=== PATIENT | male | born 1945 | race Caucasian/White ===

== ENCOUNTER → 2018-07-15 10:26 | Outpatient (CLI) | payer OTHER, SELFPAY ==
--- NOTE | 2018-07-15 10:31 | DI.RAD.S_ITS ---
PROCEDURE: XR WRIST LT MIN 3V INDICATIONS: FALL TECHNIQUE: 3 views of the wrist were acquired. COMPARISON: [facility], , WRIST MINIMUM 3 VIEWS LEFT, 08/20/2015, 13:35. FINDINGS: Bones: There is a triquetral fracture seen on the lateral view. No other fractures or dislocations. Underlying chronic degenerative change, involving the first carpometacarpal joint and radiocarpal joint. Soft tissues: No suspicious soft tissue calcifications. Soft tissue swelling. IMPRESSION: Triquetral fracture. Dictated by: Xiang Louis M.D. on 07/15/2018 at 11:08 Approved by: Xiang Louis M.D. on 07/15/2018 at 11:14
== END ==
PROVIDERS: PCP Student in an Organized Health Care Education/Training Program; Visit Provider Physician Assistant
DX: M25.532 Pain in left wrist (principal); S62.112A Displaced fracture of triquetrum [cuneiform] bone, left wrist, initial encounter for closed fracture
CPT/HCPCS: 73110

== ENCOUNTER → 2018-11-30 12:57 | Outpatient (CLI) | payer OTHER, SELFPAY ==
[2018-11-30 13:37] LABS: Lactate (Lactic Acid) 1.3 mmol/L (0.7-2.1)
[2018-11-30 14:01] LABS: Hematocrit 45.3 % (41-53); Hemoglobin 15.8 g/dL (13.5-17.5); Mean Corpuscular HGB Conc 34.9 % (30-36); Mean Corpuscular Hemoglobin 32.5 PG (26-34); Mean Corpuscular Volume 93.3 fL (80-100); Platelet Count 261 X10^3/uL (150-400); Red Blood Cell Count 4.85 X10^6/uL (4.5-5.9); Red Cell Distribution Width 14.4 % (11.6-14.8); White Blood Cell Count 10.5 X10^3/uL (4.5-11.0)
[2018-11-30 14:22] LABS: Alanine Aminotransferase 25 IU/L (21-72); Albumin 4.4 g/dL (3.5-5.0); Albumin Globulin Ratio 1.3 (1.0-2.8); Alkaline Phosphatase 96 U/L (38-126); Aspartate Aminotransferase 33 IU/L (17-59); BUN Creatinine Ratio 23.3 (6-22); Bilirubin Total 0.6 mg/dL (0.2-1.3); Blood Urea Nitrogen 21 mg/dL (9-20); Calcium 9.5 mg/dL (8.4-10.2); Carbon Dioxide 30 mmol/L (22-32); Chloride 95 mmol/L (98-107); Estimated Glomerular Filt Rate > 60.0 mL/min (>60); Globulin 3.4 g/dL (1.7-4.1); Glucose 104 mg/dL (80-110); HEMOLYSIS < 15 (0-50); Potassium 3.7 mmol/L (3.4-5.1); Sodium 137 mmol/L (137-145); Total Protein 7.8 g/dL (6.3-8.2)
[2018-11-30 14:24] LABS: Neutrophils Absolute Manual 8820 /uL (3000-5900); Total Cells Counted 100
[2018-11-30 14:25] LABS: RBC Morphology Normal Morphology
== END ==
PROVIDERS: PCP Student in an Organized Health Care Education/Training Program; Visit Provider Nurse Practitioner
DX: T67.0XXA Heatstroke and sunstroke, initial encounter (principal)
CPT/HCPCS: 36415; 80053; 83605; 85025

== ENCOUNTER → 2018-12-13 07:59 | Outpatient (CLI) | payer OTHER, SELFPAY ==
[2018-12-13 08:09] LABS: Bacteria Urine None Seen
--- NOTE | 2018-12-13 08:20 | DI.RAD.S_ITS ---
PROCEDURE: XR CHEST 2V INDICATIONS: productive cough, fatigue, low energy TECHNIQUE: 2 views of the chest were acquired. COMPARISON: [facility], , CHEST 2 VIEW, 04/22/2016, 9:33. FINDINGS: Surgical changes and devices: None. Lungs and pleura: Lungs are clear. No pleural effusions or pneumothorax. Mediastinum: Mediastinal contours are normal. Heart size is normal. Bones and chest wall: No suspicious bony abnormalities. Soft tissues appear unremarkable. IMPRESSION: No acute cardiopulmonary pathology. Dictated by: Nick Ayala M.D. on 12/13/2018 at 8:16 Approved by: Nick Ayala M.D. on 12/13/2018 at 8:18
[2018-12-13 08:23] LABS: Appearance Urine UA SL CLOUDY; Bilirubin Urine UA NEGATIVE (NEGATIVE); Color Urine UA YELLOW; Glucose Urine UA NEGATIVE (Negative); Ketones Urine UA TRACE (NEGATIVE); Leukocyte Esterase Urine UA NEGATIVE (NEGATIVE); Nitrite Urine UA NEGATIVE (Negative); Occult Blood Urine UA NEGATIVE (Negative); Protein Urine UA NEGATIVE (Negative); Urobilinogen Urine UA 0.2 E.U./dL (0.2); pH Urine UA 5.5 (4.5-8.0)
[2018-12-13 08:25] LABS: Hematocrit 42.4 % (41-53); Hemoglobin 14.7 g/dL (13.5-17.5); Mean Corpuscular HGB Conc 34.6 % (30-36); Mean Corpuscular Hemoglobin 32.3 PG (26-34); Mean Corpuscular Volume 93.4 fL (80-100); Platelet Count 240 X10^3/uL (150-400); Red Blood Cell Count 4.55 X10^6/uL (4.5-5.9); Red Cell Distribution Width 13.6 % (11.6-14.8); White Blood Cell Count 8.8 X10^3/uL (4.5-11.0)
[2018-12-13 08:35] LABS: Culture Indicated Urine Cult Not Indicated; RBC Urine 0-1/HPF (0-5/HPF); WBC Urine 0-1/HPF (0-5/HPF)
[2018-12-13 08:37] LABS: Neutrophils Absolute Manual 7040 /uL (3000-5900); RBC Morphology Normal Morphology; Total Cells Counted 100
[2018-12-13 09:22] LABS: TSH w/ Reflex to FT4 5.97 uIU/mL (0.47-4.68)
[2018-12-13 09:50] LABS: Free T4, Direct Thyroxine 1.42 ng/dL (0.78-2.19)
[2018-12-13 14:09] LABS: C-Reactive Protein Quant 6.5 mg/dL (<1.0)
[2018-12-13 14:12] LABS: Erythrocyte Sedimentation Rate 45 MM/HR (0-15)
== END ==
PROVIDERS: Family Provider Student in an Organized Health Care Education/Training Program; PCP Student in an Organized Health Care Education/Training Program; Visit Provider Nurse Practitioner
DX: R50.9 Fever, unspecified (principal); R53.83 Other fatigue; R63.4 Abnormal weight loss; R05 Cough; I07.1 Rheumatic tricuspid insufficiency; I35.0 Nonrheumatic aortic (valve) stenosis
CPT/HCPCS: 36415; 71046; 81001; 84439; 84443; 85025; 85651; 86140

== ENCOUNTER → 2018-12-18 07:16 | Outpatient (CLI) | payer OTHER, SELFPAY ==
--- NOTE | 2018-12-18 07:18 | DI.ECHO.S_ITS ---
[facility]---------+ [facility] +---------+ : : [address] : [place] : : : : [id number] : : : : Phone: [phone]---------+ Echocardiogram Report + + :Name: NESS CORTEZ Study Date: 12/18/2018 Height: 65 in : :[facility] Weight: 130 lb : : Gender: Male BSA: 1.6 m2 : :: 1945 Age: 73 yrs BP: 110/66 mmHg: :Reason For Study: Endocarditis : : Performed By: Stefani Ellis : :Referring: RAMÍREZ HU : + + Interpretation Summary -A small, mobile, ovoid echodensity is visualized on the ventricular aspect of the aortic valve. It approximately measures 0.4x0.3 cm. Visualization is limited due to shadowing from aortic valve calcification. The differentials include endocarditis vs. papillary fibroelastoma or other cardiac tumors. This was not present on the echocardiogram from 2013. The images from 2014 are suboptimal for direct comparison but not obviously seen then either. -Severe aortic valve stenosis with similar valve area compared to 2016 but progression in peak velocity. -Probably bicuspid aortic valve with fusion of the left and noncoronary cusps. -Normal LVEF and grade 1 diastolic dysfunction. -No other vegetation noted. -Overall this echo shows severe aortic valve stenosis and possible vegetation on the valve. -Recommend a AMBAR for further evaluation of the echodensity on the aortic valve and better visualization of other valves. -The ordering provider's office was notified of the critical results. Procedure: A two-dimensional transthoracic echocardiogram with color flow and Doppler was performed. The study quality was technically adequate. Comparison is made with the echocardiogram of 08-12-15. The patient was in normal sinus rhythm during the exam. Left Ventricle: The left ventricle is normal in size, wall thickness, and systolic function without any focal wall motion abnormalities. The ejection fraction is estimated to be 60-65%. Diastolic parameters suggest a relaxation abnormality of the left ventricle, consistent with probable normal filling pressures. Right Ventricle: The right ventricle is not well visualized. Atria: The left atrial size is normal. Right atrial size is normal. There is no Doppler evidence for an interatrial shunt. Mitral Valve: The mitral valve is grossly normal. There is no obvious vegetation seen on the mitral valve. There is trace mitral regurgitation. Aortic Valve: Small mobile echogenic structure seen on aortic valve. The calculated aortic valve area is 0.7 cm2. The aortic valve area is 0.9 centimeters squared by planimetry. The peak aortic velocity is 4.4 m/sec. The peak aortic velocity on the previous exam was 3.3 m/sec. The aortic valve mean gradient is 39 mmHg. Severity ratio is 0.20. There is severe aortic stenosis. There is trace aortic regurgitation. Tricuspid Valve: The tricuspid valve is normal in structure and function. There is no obvious tricuspid valve vegetation. There is trace tricuspid regurgitation. The right ventricular systolic pressure is estimated to be at least 28 mmHg based on an estimated right atrial pressure of 3 mm Hg. Pulmonic Valve: The pulmonic valve is not well visualized. Great Vessels: The aortic root is normal size. The ascending aorta could not be visualized. The aortic arch is normal in size. The IVC is of normal diameter and collapses greater than 50% with a sniff. This suggests a low right atrial pressure of 3 mm Hg. Pericardium/ Pleura There is no pericardial effusion. There is no pleural effusion. MMode/2D Measurements & Calculations LVIDd: 4.7 cm LVOT diam: 2.1 cm LVIDs: 3.3 cm Ao root diam: 3.6 cm FS: 30.0 % Aortic Jxn: 2.8 cm IVSd: 1.0 cm Ao Arch Diam (Prox Trans): 2.7 cm LVPWd: 1.0 cm LV richardson. diameter/BSA (cm/m^2): 2.8 LV sys. diameter/BSA (cm/m^2): 2.0 LA dimension: 3.1 cm RA long axis: 4.3 cm LA A2 area: 17.6 cm2 RA area: 15.9 cm2 LA A4 area: 14.5 cm2 RA vol: 49.7 ml LA length (vol): 4.6 cm RA : 30.2 ml/m2 LA vol: 46.7 ml RVDd major: 5.0 cm LA vol index: 28.3 ml/m2 RVD1 (basal): 3.1 cm RVD2 (mid): 2.7 cm RAFY (plan): 0.86 cm2 Doppler Measurements & Calculations Ao V2 max: 437.0 cm/sec LVOT Max Shyam: 86.5 cm/sec Ao V2 mean: 277.0 cm/sec LV V1 max P.0 mmHg Ao max P.4 mmHg LV V1 VTI: 20.1 cm Ao mean P.1 mmHg RAFY(I,D): 0.71 cm2 Ao V2 VTI: 98.3 cm RAFY(V,D): 0.69 cm2 sev ratio: 0.20 RAFY indexed to BSA (cm^2/m^2): 0.43 MV E max shyam: 88.2 cm/sec TR max shyam: 248.6 cm/sec MV A max shyam: 108.5 cm/sec TR max P.7 mmHg MV E/A: 0.81 PA V2 max: 84.4 cm/sec Med Peak E' Shyam: 7.1 cm/sec PA V2 mean: 55.9 cm/sec E/E' med: 12.5 PA mean P.5 mmHg Lat Peak E' Shyam: 8.3 cm/sec PA Accel Time: 0.11 sec E/E' lat: 10.6 E/e' average: 11.6 MV dec time: 0.21 sec MV P1/2t: 63.7 msec MV P1/2t max shyam: 88.6 cm/sec SV(LVOT): 69.5 ml MVA(P1/2t): 3.5 cm2 Electronically signed by: Rahul Diaz M.D. on Reading Physician:12/18/2018 11:22 AM
== END ==
PROVIDERS: Family Provider Student in an Organized Health Care Education/Training Program; PCP Student in an Organized Health Care Education/Training Program; Visit Provider Student in an Organized Health Care Education/Training Program
DX: I35.0 Nonrheumatic aortic (valve) stenosis (principal)
CPT/HCPCS: 93306

== ENCOUNTER → 2019-01-28 14:35 | Outpatient (ROUT) | payer OTHER, SELFPAY ==
[2019-01-28 14:41] LABS: Add Manual Diff / Slide Review NO; Basophils Absolute Auto 0 /uL (0-100); Basophils Percent Auto 0.8 % (0-2); Eosinophils Absolute Auto 100 /uL (0-450); Hematocrit 37.9 % (41-53); Lymphocytes Absolute Auto 600 /uL (1100-4500); Lymphocytes Percent Auto 11.4 % (25-40); Mean Corpuscular HGB Conc 34.3 % (30-36); Mean Corpuscular Hemoglobin 32.2 PG (26-34); Mean Corpuscular Volume 93.8 fL (80-100); Monocytes Absolute Auto 500 /uL (0-900); Monocytes Percent Auto 8.5 % (3-14); Neutrophils Absolute Auto 4300 /uL (1500-7000); Neutrophils Percent Auto 77.3 % (50-75); Platelet Count 199 X10^3/uL (150-400); Red Blood Cell Count 4.04 X10^6/uL (4.5-5.9); Red Cell Distribution Width 14.4 % (11.6-14.8); White Blood Cell Count 5.6 X10^3/uL (4.5-11.0)
[2019-01-28 14:57] LABS: Alanine Aminotransferase 25 IU/L (21-72); Albumin 4.2 g/dL (3.5-5.0); Albumin Globulin Ratio 1.7 (1.0-2.8); Alkaline Phosphatase 85 U/L (38-126); Aspartate Aminotransferase 27 IU/L (17-59); BUN Creatinine Ratio 26.3 (6-22); Bilirubin Total 0.4 mg/dL (0.2-1.3); Blood Urea Nitrogen 21 mg/dL (9-20); Calcium 9.4 mg/dL (8.4-10.2); Carbon Dioxide 28 mmol/L (22-32); Chloride 100 mmol/L (98-107); Estimated Glomerular Filt Rate > 60.0 mL/min (>60); Globulin 2.5 g/dL (1.7-4.1); Glucose 118 mg/dL (80-110); HEMOLYSIS < 15 (0-50); Potassium 4.1 mmol/L (3.4-5.1); Sodium 139 mmol/L (137-145); Total Protein 6.7 g/dL (6.3-8.2)
[2019-01-28 15:01] LABS: C-Reactive Protein Quant < 0.5 mg/dL (<1.0)
== END ==
PROVIDERS: Family Provider Student in an Organized Health Care Education/Training Program; PCP Nurse Practitioner; Visit Provider Internal Medicine Infectious Disease
DX: I38 Endocarditis, valve unspecified (principal)
CPT/HCPCS: 80053; 85025; 86140

== ENCOUNTER → 2019-02-28 07:58 | Outpatient (CLI) | payer OTHER, SELFPAY ==
--- NOTE | 2019-02-28 08:00 | DI.ECHO.S_ITS ---
[facility]---------+ [facility] +---------+ : : [address] : [place] : : : : [id number] : : : : Phone: [phone] +---------+ Echocardiogram Report + + :Name: NESS CORTEZ Study Date: 02/28/2019 Height: 65 in : :[facility] Weight: 130 lb : : Gender: Male BSA: 1.6 m2 : :: 1945 Age: 73 yrs BP: 110/76 mmHg: :Reason For Study: Endocarditis : : Performed By: Stefani Ellis : :Referring: RAMÍREZ HU : + + Interpretation Summary 1) Normal left ventricular thickness, size, wall motion, and systolic function (EF 60-65%). 2) Normal right ventricular size and function. 3) Small aortic valve vegetation noted. 4) Severe aortic stenosis present (valve area 0.66cm2, mean gradient 36mmHg, severity ratio 0.21). Previous mean gradient was 40mmHg. 5) There is mild to moderate aortic regurgitation. 6) Compared to the Echo done 12/19/2018, no significant change. Procedure: A two-dimensional transthoracic echocardiogram with color flow and Doppler was performed. The study quality was technically adequate. Comparison is made with the echocardiogram of 12-18-18. The patient was in normal sinus rhythm during the exam. Left Ventricle: The left ventricle is normal in size, wall thickness, and systolic function without any focal wall motion abnormalities. The ejection fraction is estimated to be 60-65%. Diastolic parameters suggest a relaxation abnormality of the left ventricle, consistent with probable normal filling pressures. Right Ventricle: The right ventricle grossly appears normal in size with probable normal systolic function. Atria: The left atrium is mildly dilated. The right atrium is mildly dilated. The interatrial septum is intact with no evidence for an atrial septal defect. Mitral Valve: The mitral valve is normal in structure and function. There is trace mitral regurgitation. Aortic Valve: The calculated aortic valve area is 0.6 cm2. The peak aortic velocity is 4.0 m/sec. The peak aortic velocity on the previous exam was 4.4 m/sec. The aortic valve mean gradient is 36 mmHg. Severity ratio is 0.21. Small aortic valve vegetation noted. There is severe aortic stenosis. There is mild to moderate aortic regurgitation. Tricuspid Valve: The tricuspid valve leaflets are thin and pliable. There is trace tricuspid regurgitation. Pulmonic Valve: The pulmonic valve is not well seen, but is grossly normal. There is no pulmonic valvular regurgitation. Great Vessels: The aortic root is normal size. The dimensions of the ascending aorta are normal. The aortic arch is normal in size. The IVC is of normal diameter and collapses greater than 50% with a sniff. This suggests a low right atrial pressure of 3 mm Hg. Pericardium/ Pleura There is no pericardial effusion. There is no pleural effusion. MMode/2D Measurements & Calculations LVIDd: 5.0 cm LVOT diam: 2.0 cm LVIDs: 2.9 cm Ao root diam: 3.5 cm FS: 41.2 % Aortic Jxn: 2.9 cm EPSS: 0.73 cm asc Aorta Diam: 3.0 cm IVSd: 1.1 cm Ao Arch Diam (Prox Trans): 2.8 cm LVPWd: 1.0 cm LV richardson. diameter/BSA (cm/m^2): 3.0 LV sys. diameter/BSA (cm/m^2): 1.8 LA dimension: 3.1 cm RA long axis: 4.8 cm LA A2 area: 22.0 cm2 RA area: 20.3 cm2 LA A4 area: 18.7 cm2 RA vol: 73.3 ml LA length (vol): 4.7 cm RA : 44.5 ml/m2 LA vol: 74.1 ml IVC diam: 1.9 cm LA vol index: 45.0 ml/m2 RVDd major: 5.8 cm RVD1 (basal): 3.2 cm RVD2 (mid): 2.7 cm Doppler Measurements & Calculations Ao V2 max: 400.8 cm/sec LVOT Max Shyam: 86.7 cm/sec Ao V2 mean: 287.5 cm/sec LV V1 max P.0 mmHg Ao max P.3 mmHg LV V1 VTI: 20.7 cm Ao mean P.9 mmHg RAFY(I,D): 0.63 cm2 Ao V2 VTI: 100.4 cm RAFY(V,D): 0.66 cm2 sev ratio: 0.21 RAFY indexed to BSA (cm^2/m^2): 0.38 AI P1/2t: 358.2 msec AI dec slope: 331.8 cm/sec2 MV E max shyam: 116.4 cm/sec TR max shyam: 236.7 cm/sec MV A max shyam: 109.3 cm/sec TR max P.4 mmHg MV E/A: 1.1 PA V2 max: 75.9 cm/sec Med Peak E' Shyam: 8.1 cm/sec PA V2 mean: 54.9 cm/sec E/E' med: 14.4 PA mean P.4 mmHg Lat Peak E' Shyam: 9.9 cm/sec PA Accel Time: 0.13 sec E/E' lat: 11.8 E/e' average: 13.1 MV dec time: 0.25 sec MV P1/2t: 74.3 msec MV P1/2t max shyam: 116.7 cm/sec SV(LVOT): 63.3 ml MVA(P1/2t): 3.0 cm2 Reading Physician:10:55 AM
== END ==
PROVIDERS: PCP Nurse Practitioner; Visit Provider Nurse Practitioner
DX: I35.2 Nonrheumatic aortic (valve) stenosis with insufficiency (principal); I33.0 Acute and subacute infective endocarditis
CPT/HCPCS: 93306

== ENCOUNTER → 2019-04-09 07:04 | Outpatient (CLI) | payer OTHER, SELFPAY ==
[2019-04-09 09:09] LABS: Cholesterol 185 mg/dL (140-199); HDL Cholesterol 62 mg/dL (40-60); LDL Cholesterol Calculated 113 mg/dL (<100); Triglycerides 52 mg/dL (35-150)
[2019-04-09 09:24] LABS: Free T3, Triiodothyronine Free 3.16 pg/mL (2.77-5.27); Free T4, Direct Thyroxine 1.24 ng/dL (0.78-2.19)
[2019-04-09 09:38] LABS: Thyroid Stimulating Hormone 1.82 uIU/mL (0.47-4.68)
== END ==
PROVIDERS: PCP Nurse Practitioner; Visit Provider Nurse Practitioner
DX: E03.9 Hypothyroidism, unspecified (principal); E78.00 Pure hypercholesterolemia, unspecified; I39 Endocarditis and heart valve disorders in diseases classified elsewhere; Z79.899 Other long term (current) drug therapy
CPT/HCPCS: 36415; 80061; 84439; 84443; 84481

== ENCOUNTER → 2019-09-02 12:55 | Outpatient (CLI) | payer OTHER, SELFPAY | PROVIDERS: PCP Nurse Practitioner; Visit Provider Nurse Practitioner | DX: R21 Rash and other nonspecific skin eruption (principal) | CPT/HCPCS: 87070; 87075; 87077; 87147; 87186; 87205 ==

== ENCOUNTER → 2019-09-03 07:21 | Outpatient (CLI) | payer OTHER, SELFPAY ==
[2019-09-03 08:38] LABS: Add Manual Diff / Slide Review NO; Basophils Absolute Auto 0 /uL (0-100); Basophils Percent Auto 0.4 % (0-2); Eosinophils Absolute Auto 100 /uL (0-450); Eosinophils Percent Auto 1.6 % (2-4); Hematocrit 44.1 % (41-53); Hemoglobin 15.1 g/dL (13.5-17.5); Lymphocytes Absolute Auto 900 /uL (1100-4500); Lymphocytes Percent Auto 16.2 % (25-40); Mean Corpuscular HGB Conc 34.3 % (30-36); Mean Corpuscular Hemoglobin 32.7 PG (26-34); Mean Corpuscular Volume 95.4 fL (80-100); Monocytes Absolute Auto 500 /uL (0-900); Monocytes Percent Auto 8.5 % (3-14); Neutrophils Absolute Auto 4200 /uL (1500-7000); Neutrophils Percent Auto 73.3 % (50-75); Platelet Count 183 X10^3/uL (150-400); Red Blood Cell Count 4.62 X10^6/uL (4.5-5.9); White Blood Cell Count 5.7 X10^3/uL (4.5-11.0)
[2019-09-03 08:48] LABS: Cholesterol 174 mg/dL (140-199); HDL Cholesterol 81 mg/dL (40-60); LDL Cholesterol Calculated 84 mg/dL (<100); Triglycerides 46 mg/dL (35-150)
[2019-09-03 09:03] LABS: Free T3, Triiodothyronine Free 2.94 pg/mL (2.77-5.27); Free T4, Direct Thyroxine 1.23 ng/dL (0.78-2.19)
[2019-09-03 09:16] LABS: Thyroid Stimulating Hormone 3.37 uIU/mL (0.47-4.68)
== END ==
PROVIDERS: PCP Nurse Practitioner; Referring Provider Nurse Practitioner; Visit Provider Nurse Practitioner
DX: R53.83 Other fatigue (principal); E78.00 Pure hypercholesterolemia, unspecified
CPT/HCPCS: 36415; 80061; 84439; 84443; 84481; 85025

== ENCOUNTER → 2019-09-20 13:15 | Outpatient (CLI) | payer OTHER, SELFPAY ==
--- NOTE | 2019-09-20 15:44 | DI.ECHO.S_ITS ---
Echocardiogram Report + + :Name: NESS CORTEZ Study Date: 09/20/2019 Height: 65 in : :[facility] Weight: 147 lb : : Gender: Male BSA: 1.7 m2 : :: 1945 Age: 74 yrs BP: 132/70 mmHg: :Reason For Study: Aortic valve stenosis : :Ordering Physician: Sushila Myers : :Lukasz Performed By: Romy Page : + + Interpretation Summary 1) Normal left ventricular size, wall motion, and systolic function (EF 65- 70%). 2) Normal right ventricular size and function. 3) Small aortic valve vegetation noted. 4) There is severe aortic stenosis (valve area 0.61cm2, mean gradient 40mmHg, severity ratio 0.22). 5) There is mild to moderate aortic regurgitation. 6) Compared to the Echo done 02/28/2019, no significant change. Procedure: A two-dimensional transthoracic echocardiogram with color flow and Doppler was performed. The study quality was technically adequate. Comparison is made with the echocardiogram of 02/28/2019. The patient was in normal sinus rhythm during the exam. Left Ventricle: Left ventricular wall thickness is borderline increased. The left ventricle is normal in size. The ejection fraction is estimated to be 65- 70%. Left ventricular systolic function is normal. There are no focal wall motion abnormalities. Right Ventricle: The right ventricle is normal in size and function. Atria: Both atria are mildly dilated. There is no Doppler evidence for an interatrial shunt. Mitral Valve: The mitral valve leaflets appear mildly thickened, but open well. There is mild mitral annular calcification. There is trace mitral regurgitation. Aortic Valve: The aortic valve is moderately calcified. Small aortic valve vegetation noted. The peak aortic velocity is 4.4 m/sec. The peak aortic velocity on the previous exam was 4.0 m/sec. The calculated aortic valve area is 0.61 cm2. The aortic valve mean gradient is 40 mmHg. There is severe aortic stenosis. There is mild to moderate aortic regurgitation. Tricuspid Valve: The tricuspid valve is normal in structure and function. There is trace tricuspid regurgitation. The right ventricular systolic pressure is estimated to be at least 24 mmHg based on an estimated right atrial pressure of 3 mm Hg. Pulmonic Valve: The pulmonic valve is not well visualized. There is trace pulmonic regurgitation. Great Vessels: The aortic root is normal size. The ascending aorta could not be visualized. The pulmonary is not well visualized. The IVC is of normal diameter and collapses greater than 50% with a sniff. This suggests a low right atrial pressure of 3 mm Hg. Pericardium/ Pleura There is no pericardial effusion. There is no pleural effusion. MMode/2D Measurements & Calculations LVIDd: 5.2 cm LVOT diam: 2.0 cm LVIDs: 3.8 cm Ao root diam: 3.2 cm FS: 27.0 % IVSd: 0.75 cm LVPWd: 0.99 cm LV richardson. diameter/BSA (cm/m^2): 3.0 LV sys. diameter/BSA (cm/m^2): 2.2 LA A2 area: 19.6 cm2 RA long axis: 4.7 cm LA A4 area: 18.1 cm2 RA area: 17.9 cm2 LA length (vol): 4.9 cm RA vol: 58.1 ml LA vol: 61.7 ml RA : 33.5 ml/m2 LA vol index: 35.6 ml/m2 IVC diam: 2.0 cm RVD1 (basal): 4.2 cm RVD2 (mid): 3.2 cm TAPSE: 2.1 cm Doppler Measurements & Calculations Ao V2 max: 438.8 cm/sec LVOT Max Shyam: 83.4 cm/sec Ao V2 mean: 292.6 cm/sec LV V1 max P.8 mmHg Ao max P.0 mmHg LV V1 VTI: 19.9 cm Ao mean P.6 mmHg RAFY(I,D): 0.72 cm2 Ao V2 VTI: 89.3 cm RAFY(V,D): 0.61 cm2 sev ratio: 0.22 RAFY indexed to BSA (cm^2/m^2): 0.41 MV E max shyam: 79.4 cm/sec TR max shyam: 229.0 cm/sec MV A max shyam: 112.6 cm/sec TR max P.0 mmHg MV E/A: 0.71 PA V2 max: 57.2 cm/sec Med Peak E' Shyam: 5.7 cm/sec PA V2 mean: 39.5 cm/sec E/E' med: 14.0 PA mean P.69 mmHg Lat Peak E' Shyam: 6.8 cm/sec PA Accel Time: 0.14 sec E/E' lat: 11.6 E/e' average: 12.8 MV dec time: 0.19 sec MV P1/2t: 54.0 msec MV P1/2t max shyam: 78.8 cm/sec SV(LVOT): 63.9 ml MVA(P1/2t): 4.1 cm2 _ Reading Physician:03:44 PM
== END ==
PROVIDERS: PCP Nurse Practitioner; Referring Provider Internal Medicine Cardiovascular Disease; Visit Provider Internal Medicine Cardiovascular Disease
DX: I35.2 Nonrheumatic aortic (valve) stenosis with insufficiency (principal)
CPT/HCPCS: 93306

== ENCOUNTER → 2019-11-15 10:02 | Outpatient (CLI) | payer OTHER, SELFPAY ==
[2019-11-18 15:10] LABS: Fecal Immunochemical Test Negative (Negative)
== END ==
PROVIDERS: PCP Nurse Practitioner; Referring Provider Nurse Practitioner; Visit Provider Nurse Practitioner
DX: Z12.11 Encounter for screening for malignant neoplasm of colon (principal)
CPT/HCPCS: 82274

== ENCOUNTER → 2020-10-02 07:36 | Outpatient (CLI) | payer OTHER, SELFPAY ==
--- NOTE | 2020-10-02 | DI.ECHO.S_ITS ---
[facility]---------+ [facility] +---------+ : : [address] : [place] : : : : [id number] : : : : Phone: [phone] +---------+ Echocardiogram Report + + :Name: NESS CORTEZ Study Date: 10/02/2020 Height: 68 in : :[facility] ReadingLocation: Weight: 135 lb : : Gender: Male BSA: 1.7 m2 : :: 1945 Age: 75 yrs BP: 117/67 mmHg: :Reason For Study: Aortic valve stenosis : :Ordering Physician: Sharifa : :Lucia Lal Performed By: Sammy Lyons : :Referring: SHARIFA ALL : + + Interpretation Summary 1) Normal left ventricular size, wall motion, and systolic function (EF 60- 65%). 2) Normal right ventricular size and function. 3) Small aortic valve vegetation noted. 4) There is severe aortic stenosis (valve area 0.5cm2, mean gradient 66mmHg, severity ratio 0.17). 5) There is mild to moderate aortic regurgitation. 6) Compared to the Echo done 09/20/2019, severe stenosis has progressed further. Procedure: A two-dimensional transthoracic echocardiogram with color flow and Doppler was performed. The study quality was technically adequate. Comparison is made with the echocardiogram of 09/20/2019. The patient was in sinus rhythm with heart rates between 65-72 bpm during the exam. Left Ventricle: The left ventricle is normal in size. There is mild concentric left ventricular hypertrophy. Left ventricular systolic function is normal. The ejection fraction is estimated to be 60-65%. There are no focal wall motion abnormalities. Diastolic function could not be accurately assessed due to contradictory data. Right Ventricle: The right ventricle is normal in size and function. Atria: Both atria are normal in size. There is no Doppler evidence for an interatrial shunt. Mitral Valve: The mitral valve is normal in structure and function. There is trace mitral regurgitation. Aortic Valve: The aortic valve is severely calcified. There is severely reduced leaflet mobility. The aortic valve is not well visualized. There is critically severe aortic stenosis. The peak aortic velocity is 5.2 m/sec. The calculated aortic valve area is .5 cm2. The aortic valve mean gradient is 66 mmHg. There is mild to moderate aortic regurgitation. Tricuspid Valve: The tricuspid valve is normal in structure and function. There is mild tricuspid regurgitation. The right ventricular systolic pressure is estimated to be at least 30 mmHg based on an estimated right atrial pressure of 3 mm Hg. Pulmonic Valve: The pulmonic valve is not well seen, but is grossly normal. There is no pulmonic valvular regurgitation. Great Vessels: The aortic root is normal size. The ascending aorta could not be visualized. The IVC is of normal diameter and collapses greater than 50% with a sniff. This suggests a low right atrial pressure of 3 mm Hg. Pericardium/ Pleura There is no pericardial effusion. There is no pleural effusion. MMode/2D Measurements & Calculations LVIDd: 5.3 cm LVOT diam: 2.0 cm LVIDs: 3.5 cm FS: 34.5 % IVSd: 1.3 cm LVPWd: 1.2 cm LV richardson. diameter/BSA (cm/m^2): 3.0 LV sys. diameter/BSA (cm/m^2): 2.0 LA A2 area: 18.6 cm2 RA long axis: 4.4 cm LA A4 area: 14.9 cm2 RA area: 16.2 cm2 LA length (vol): 4.3 cm RA vol: 50.8 ml LA vol: 54.5 ml RA : 29.4 ml/m2 LA vol index: 31.5 ml/m2 TAPSE: 2.8 cm Doppler Measurements & Calculations Ao V2 max: 522.3 cm/sec LVOT Max Shyam: 83.8 cm/sec Ao V2 mean: 386.4 cm/sec LV V1 max P.8 mmHg Ao max P.1 mmHg LV V1 VTI: 22.4 cm Ao mean P.1 mmHg RAFY(I,D): 0.51 cm2 Ao V2 VTI: 133.1 cm RAFY(V,D): 0.49 cm2 sev ratio: 0.17 RAFY indexed to BSA (cm^2/m^2): 0.30 AI P1/2t: 334.4 msec AI dec slope: 303.5 cm/sec2 MV E max shyam: 111.4 cm/sec TR max shyam: 260.6 cm/sec MV A max shyam: 114.0 cm/sec TR max P.2 mmHg MV E/A: 0.98 PA pr(Accel): 37.0 mmHg Med Peak E' Shyam: 6.1 cm/sec E/E' med: 18.2 Lat Peak E' Shyam: 6.3 cm/sec E/E' lat: 17.6 E/e' average: 17.9 MV dec time: 0.26 sec SV(LVOT): 68.0 ml Reading Physician:04:40 PM
== END ==
PROVIDERS: PCP Nurse Practitioner; Referring Provider Internal Medicine Cardiovascular Disease; Visit Provider Internal Medicine Cardiovascular Disease
DX: I35.0 Nonrheumatic aortic (valve) stenosis (principal); I35.1 Nonrheumatic aortic (valve) insufficiency; I33.0 Acute and subacute infective endocarditis
CPT/HCPCS: 93306

== ENCOUNTER → 2021-04-19 07:03 | Outpatient (CLI) | payer OTHER, SELFPAY ==
[2021-04-19 09:28] LABS: Creatinine Urine Random 28.6 mg/dL
[2021-04-19 09:34] LABS: Microalbumin Urine Random < 0.6 mg/dL (0-1.6)
[2021-04-19 10:37] LABS: Alanine Aminotransferase 21 IU/L (<50); Albumin 4.4 g/dL (3.5-5.0); Albumin Globulin Ratio 1.7 (1.0-2.8); Alkaline Phosphatase 63 U/L (38-126); Aspartate Aminotransferase 31 IU/L (17-59); BUN Creatinine Ratio 21.1 (6-22); Bilirubin Total 0.5 mg/dL (0.2-1.3); Blood Urea Nitrogen 15 mg/dL (9-20); Calcium 9.1 mg/dL (8.4-10.2); Carbon Dioxide 31 mmol/L (22-32); Chloride 100 mmol/L (98-107); Cholesterol 160 mg/dL (140-199); Estimated Glomerular Filt Rate > 60.0 mL/min (>60); Globulin 2.6 g/dL (1.7-4.1); Glucose 102 mg/dL (80-110); HDL Cholesterol 85 mg/dL (40-60); HEMOLYSIS < 15 (0-50); LDL Cholesterol Calculated 65 mg/dL (<100); Potassium 4.2 mmol/L (3.4-5.1); Sodium 136 mmol/L (137-145); Triglycerides 49 mg/dL (35-150)
[2021-04-19 11:05] LABS: Thyroid Stimulating Hormone 3.77 uIU/mL (0.47-4.68)
== END ==
PROVIDERS: PCP Nurse Practitioner; Referring Provider Nurse Practitioner; Visit Provider Nurse Practitioner
DX: E78.00 Pure hypercholesterolemia, unspecified (principal); E03.9 Hypothyroidism, unspecified; R53.83 Other fatigue; Z79.899 Other long term (current) drug therapy
CPT/HCPCS: 36415; 80053; 80061; 82043; 82570; 84443

== ENCOUNTER → 2021-08-05 10:48 | Outpatient (CLI) | payer OTHER, SELFPAY ==
[2021-08-05 11:29] LABS: Hematocrit 40.2 % (41-53); Mean Corpuscular HGB Conc 34.8 % (30-36); Mean Corpuscular Hemoglobin 33.6 PG (26-34); Mean Corpuscular Volume 96.6 fL (80-100); Platelet Count 201 X10^3/uL (150-400); Red Blood Cell Count 4.17 X10^6/uL (4.5-5.9); Red Cell Distribution Width 13.9 % (11.6-14.8); White Blood Cell Count 6.5 X10^3/uL (4.5-11.0)
[2021-08-05 11:39] LABS: Alanine Aminotransferase 17 IU/L (<50); Albumin 4.6 g/dL (3.5-5.0); Albumin Globulin Ratio 1.6 (1.0-2.8); Alkaline Phosphatase 61 U/L (38-126); Aspartate Aminotransferase 33 IU/L (17-59); BUN Creatinine Ratio 24.6 (6-22); Bilirubin Total 0.6 mg/dL (0.2-1.3); Bilirubin Unconjugated 0.5 mg/dL (0.0-1.1); Blood Urea Nitrogen 17 mg/dL (9-20); Calcium 8.9 mg/dL (8.4-10.2); Carbon Dioxide 31 mmol/L (22-32); Chloride 101 mmol/L (98-107); Estimated Glomerular Filt Rate > 60.0 mL/min (>60); Globulin 2.8 g/dL (1.7-4.1); Glucose 97 mg/dL (80-110); HEMOLYSIS < 15 (0-50); Potassium 4.8 mmol/L (3.4-5.1); Sodium 136 mmol/L (137-145); Total Protein 7.4 g/dL (6.3-8.2)
== END ==
PROVIDERS: PCP Nurse Practitioner; Referring Provider Nurse Practitioner; Visit Provider Nurse Practitioner
DX: I35.0 Nonrheumatic aortic (valve) stenosis (principal); B35.1 Tinea unguium; Z79.899 Other long term (current) drug therapy
CPT/HCPCS: 36415; 80048; 80076; 85027

== ENCOUNTER → 2021-09-01 10:14 | Outpatient (CLI) | payer OTHER, SELFPAY ==
[2021-09-01 10:56] LABS: Add Manual Diff / Slide Review NO; Basophils Absolute Auto 0 /uL (0-100); Basophils Percent Auto 0.4 % (0-2); Eosinophils Absolute Auto 100 /uL (0-450); Eosinophils Percent Auto 1.5 % (2-4); Hemoglobin 13.6 g/dL (13.5-17.5); Lymphocytes Absolute Auto 600 /uL (1100-4500); Lymphocytes Percent Auto 11.4 % (25-40); Mean Corpuscular HGB Conc 34.1 % (30-36); Monocytes Absolute Auto 500 /uL (0-900); Monocytes Percent Auto 8.7 % (3-14); Neutrophils Absolute Auto 4400 /uL (1500-7000); Platelet Count 196 X10^3/uL (150-400); Red Blood Cell Count 4.12 X10^6/uL (4.5-5.9); Red Cell Distribution Width 14.6 % (11.6-14.8); White Blood Cell Count 5.6 X10^3/uL (4.5-11.0)
[2021-09-01 11:33] LABS: BUN Creatinine Ratio 19.7 (6-22); Blood Urea Nitrogen 13 mg/dL (9-20); Carbon Dioxide 30 mmol/L (22-32); Chloride 101 mmol/L (98-107); Estimated Glomerular Filt Rate > 60 mL/min (>60); Glucose 100 mg/dL (80-110); HEMOLYSIS < 15 (0-50); Potassium 4.4 mmol/L (3.4-5.1); Sodium 136 mmol/L (137-145)
== END ==
PROVIDERS: PCP Nurse Practitioner; Referring Provider Internal Medicine Interventional Cardiology; Visit Provider Internal Medicine Interventional Cardiology
DX: I35.0 Nonrheumatic aortic (valve) stenosis (principal); Z95.2 Presence of prosthetic heart valve
CPT/HCPCS: 36415; 80048; 85025

== ENCOUNTER → 2021-12-26 10:14 | Outpatient (CLI) | payer OTHER, SELFPAY ==
--- NOTE | 2021-12-26 10:16 | DI.RAD.S_ITS ---
PROCEDURE: XR THORACIC SPINE 3V INDICATIONS: Mid back pain TECHNIQUE: 3 views of the thoracic spine were acquired. COMPARISON: None. FINDINGS: Bones: No fractures or dislocations. No suspicious bony lesions. 12 pairs of ribs are noted, and appear intact where visualized. Disc space narrowing and small anterior osteophytes noted in the midthoracic spine Soft tissues: No paravertebral stripe thickening. Transcatheter aortic valve replacement noted. In calcified granuloma in the right upper lobe. IMPRESSION: Mild degenerative disc disease. No fracture or malalignment. Approved by: Kenton Owusu M.D. on 12/26/2021 at 12:31
--- NOTE | 2021-12-26 10:16 | DI.RAD.S_ITS ---
PROCEDURE: XR LUMBAR SPINE 2-3V INDICATIONS: Mid back pain TECHNIQUE: 3 views of the lumbar spine were acquired. COMPARISON: None. FINDINGS: Bones: 5 [id number] vertebrae are present. There is normal bony alignment. No vertebral body compression fractures. No suspicious bony lesions. Disc space narrowing and hypertrophic facet joints noted throughout the lumbar spine particularly in the lower lumbar spine with vacuum disc phenomena at L5-S1. Soft tissues: Overlying bowel gas pattern is normal. No suspicious soft tissue calcifications. Atherosclerotic calcification in the abdominal aorta noted without evidence of aneurysm. IMPRESSION: Multilevel degenerative disc disease and arthropathy particularly lower lumbar spine Approved by: Kenton Owusu M.D. on 12/26/2021 at 12:30
== END ==
PROVIDERS: PCP Nurse Practitioner; Referring Provider Nurse Practitioner Family; Visit Provider Nurse Practitioner Family
DX: M51.34 Other intervertebral disc degeneration, thoracic region (principal); M51.36 Other intervertebral disc degeneration, lumbar region; M47.816 Spondylosis without myelopathy or radiculopathy, lumbar region; I70.0 Atherosclerosis of aorta; M54.9 Dorsalgia, unspecified
CPT/HCPCS: 72072; 72100

== ENCOUNTER → 2022-01-25 08:43 | Outpatient (CLI) | payer OTHER, SELFPAY | PROVIDERS: PCP Nurse Practitioner; Referring Provider Radiology Radiation Oncology; Visit Provider Family Medicine | DX: L59.8 Other specified disorders of the skin and subcutaneous tissue related to radiation (principal); K04.7 Periapical abscess without sinus | CPT/HCPCS: 99204; 99212 ==

== ENCOUNTER → 2022-02-16 15:27 | Outpatient (CLI) | payer OTHER, SELFPAY | PROVIDERS: PCP Nurse Practitioner; Referring Provider Nurse Practitioner; Visit Provider Family Medicine | DX: L59.8 Other specified disorders of the skin and subcutaneous tissue related to radiation (principal); K04.7 Periapical abscess without sinus | CPT/HCPCS: 99183; G0277 ==

== ENCOUNTER → 2022-02-17 10:14 | Outpatient (CLI) | payer OTHER, SELFPAY | PROVIDERS: PCP Nurse Practitioner; Referring Provider Nurse Practitioner; Visit Provider Family Medicine | DX: L59.8 Other specified disorders of the skin and subcutaneous tissue related to radiation (principal); K04.7 Periapical abscess without sinus | CPT/HCPCS: 99183; G0277 ==

== ENCOUNTER → 2022-02-18 11:13 | Outpatient (CLI) | payer OTHER, SELFPAY | PROVIDERS: PCP Nurse Practitioner; Referring Provider Nurse Practitioner; Visit Provider Nurse Practitioner Family | DX: L59.8 Other specified disorders of the skin and subcutaneous tissue related to radiation (principal); K04.7 Periapical abscess without sinus | CPT/HCPCS: 99183; G0277 ==

== ENCOUNTER → 2022-02-21 09:34 | Outpatient (CLI) | payer OTHER, SELFPAY | PROVIDERS: PCP Nurse Practitioner; Referring Provider Nurse Practitioner; Visit Provider Family Medicine | DX: L59.8 Other specified disorders of the skin and subcutaneous tissue related to radiation (principal); K04.7 Periapical abscess without sinus | CPT/HCPCS: 99183; G0277 ==

== ENCOUNTER → 2022-02-22 09:55 | Outpatient (CLI) | payer OTHER, SELFPAY | PROVIDERS: PCP Nurse Practitioner; Referring Provider Nurse Practitioner; Visit Provider Family Medicine | DX: L59.8 Other specified disorders of the skin and subcutaneous tissue related to radiation (principal); K04.7 Periapical abscess without sinus | CPT/HCPCS: 99183; G0277 ==

== ENCOUNTER → 2022-02-23 08:59 | Outpatient (CLI) | payer OTHER, SELFPAY | PROVIDERS: PCP Nurse Practitioner; Referring Provider Nurse Practitioner; Visit Provider Family Medicine | DX: L59.8 Other specified disorders of the skin and subcutaneous tissue related to radiation (principal); K04.7 Periapical abscess without sinus | CPT/HCPCS: 99183; G0277 ==

== ENCOUNTER → 2022-02-24 08:56 | Outpatient (CLI) | payer OTHER, SELFPAY | PROVIDERS: PCP Nurse Practitioner; Referring Provider Nurse Practitioner; Visit Provider Family Medicine | DX: L59.8 Other specified disorders of the skin and subcutaneous tissue related to radiation (principal); K04.7 Periapical abscess without sinus | CPT/HCPCS: 99183; G0277 ==

== ENCOUNTER → 2022-02-25 09:06 | Outpatient (CLI) | payer OTHER, SELFPAY | PROVIDERS: PCP Nurse Practitioner; Referring Provider Nurse Practitioner; Visit Provider Nurse Practitioner Family | DX: L59.8 Other specified disorders of the skin and subcutaneous tissue related to radiation (principal); K04.7 Periapical abscess without sinus | CPT/HCPCS: 99183; G0277 ==

== ENCOUNTER → 2022-02-28 09:00 | Outpatient (CLI) | payer OTHER, SELFPAY | PROVIDERS: PCP Nurse Practitioner; Referring Provider Nurse Practitioner; Visit Provider Family Medicine | DX: L59.8 Other specified disorders of the skin and subcutaneous tissue related to radiation (principal); K04.7 Periapical abscess without sinus | CPT/HCPCS: 99183; G0277 ==

== ENCOUNTER → 2022-03-01 09:33 | Outpatient (CLI) | payer OTHER, SELFPAY | PROVIDERS: PCP Nurse Practitioner; Referring Provider Nurse Practitioner; Visit Provider Plastic Surgery | DX: L59.8 Other specified disorders of the skin and subcutaneous tissue related to radiation (principal); K04.7 Periapical abscess without sinus | CPT/HCPCS: 99183; G0277 ==

== ENCOUNTER → 2022-03-02 10:27 | Outpatient (CLI) | payer OTHER, SELFPAY | PROVIDERS: PCP Nurse Practitioner; Referring Provider Nurse Practitioner; Visit Provider Family Medicine | DX: L59.8 Other specified disorders of the skin and subcutaneous tissue related to radiation (principal); K04.7 Periapical abscess without sinus | CPT/HCPCS: 99183; G0277 ==

== ENCOUNTER → 2022-03-03 10:14 | Outpatient (CLI) | payer OTHER, SELFPAY | PROVIDERS: PCP Nurse Practitioner; Referring Provider Nurse Practitioner; Visit Provider Family Medicine | DX: L59.8 Other specified disorders of the skin and subcutaneous tissue related to radiation (principal); K04.7 Periapical abscess without sinus | CPT/HCPCS: 99183; G0277 ==

== ENCOUNTER → 2022-03-04 14:55 | Outpatient (CLI) | payer OTHER, SELFPAY | PROVIDERS: PCP Nurse Practitioner; Referring Provider Nurse Practitioner; Visit Provider Nurse Practitioner Family | DX: L59.8 Other specified disorders of the skin and subcutaneous tissue related to radiation (principal); K04.7 Periapical abscess without sinus | CPT/HCPCS: 99183; G0277 ==

== ENCOUNTER → 2022-03-07 08:45 | Outpatient (CLI) | payer OTHER, SELFPAY | PROVIDERS: PCP Nurse Practitioner; Referring Provider Nurse Practitioner; Visit Provider Family Medicine | DX: L59.8 Other specified disorders of the skin and subcutaneous tissue related to radiation (principal); K04.7 Periapical abscess without sinus | CPT/HCPCS: 99183; G0277 ==

== ENCOUNTER → 2022-03-08 08:29 | Outpatient (CLI) | payer OTHER, SELFPAY | PROVIDERS: PCP Nurse Practitioner; Referring Provider Nurse Practitioner; Visit Provider Family Medicine | DX: L59.8 Other specified disorders of the skin and subcutaneous tissue related to radiation (principal); K04.7 Periapical abscess without sinus | CPT/HCPCS: 99183; G0277 ==

== ENCOUNTER → 2022-03-09 08:58 | Outpatient (CLI) | payer OTHER, SELFPAY | PROVIDERS: PCP Nurse Practitioner; Referring Provider Nurse Practitioner; Visit Provider Family Medicine | DX: L59.8 Other specified disorders of the skin and subcutaneous tissue related to radiation (principal); K04.7 Periapical abscess without sinus | CPT/HCPCS: 99183; G0277 ==

== ENCOUNTER → 2022-03-10 08:30 | Outpatient (CLI) | payer OTHER, SELFPAY | PROVIDERS: PCP Nurse Practitioner; Referring Provider Nurse Practitioner; Visit Provider Family Medicine | DX: L59.8 Other specified disorders of the skin and subcutaneous tissue related to radiation (principal); K04.7 Periapical abscess without sinus | CPT/HCPCS: 99183; G0277 ==

== ENCOUNTER → 2022-03-14 08:30 | Outpatient (CLI) | payer OTHER, SELFPAY | PROVIDERS: PCP Nurse Practitioner; Referring Provider Nurse Practitioner; Visit Provider Family Medicine | DX: L59.8 Other specified disorders of the skin and subcutaneous tissue related to radiation (principal); K04.7 Periapical abscess without sinus | CPT/HCPCS: 99183; G0277 ==

== ENCOUNTER → 2022-03-15 08:30 | Outpatient (CLI) | payer OTHER, SELFPAY | PROVIDERS: PCP Nurse Practitioner; Referring Provider Nurse Practitioner; Visit Provider Family Medicine | DX: L59.8 Other specified disorders of the skin and subcutaneous tissue related to radiation (principal); K04.7 Periapical abscess without sinus | CPT/HCPCS: 99183; G0277 ==

== ENCOUNTER → 2022-03-16 08:42 | Outpatient (CLI) | payer OTHER, SELFPAY | PROVIDERS: PCP Nurse Practitioner; Referring Provider Nurse Practitioner; Visit Provider Family Medicine | DX: L59.8 Other specified disorders of the skin and subcutaneous tissue related to radiation (principal); K04.7 Periapical abscess without sinus | CPT/HCPCS: 99183; 99212; 99213; G0277 ==

== ENCOUNTER → 2022-03-23 09:02 | Outpatient (CLI) | payer OTHER, SELFPAY | PROVIDERS: PCP Nurse Practitioner; Referring Provider Nurse Practitioner; Visit Provider Family Medicine | DX: L59.8 Other specified disorders of the skin and subcutaneous tissue related to radiation (principal); K04.7 Periapical abscess without sinus | CPT/HCPCS: 99183; G0277 ==

== ENCOUNTER → 2022-03-24 08:41 | Outpatient (CLI) | payer OTHER, SELFPAY | PROVIDERS: PCP Nurse Practitioner; Referring Provider Nurse Practitioner; Visit Provider Family Medicine | DX: L59.8 Other specified disorders of the skin and subcutaneous tissue related to radiation (principal); K04.7 Periapical abscess without sinus | CPT/HCPCS: 99183; G0277 ==

== ENCOUNTER → 2022-03-25 08:59 | Outpatient (CLI) | payer OTHER, SELFPAY | PROVIDERS: PCP Nurse Practitioner; Referring Provider Nurse Practitioner; Visit Provider Nurse Practitioner Family | DX: L59.8 Other specified disorders of the skin and subcutaneous tissue related to radiation (principal); K04.7 Periapical abscess without sinus | CPT/HCPCS: 99183; G0277 ==

== ENCOUNTER → 2022-03-29 08:55 | Outpatient (CLI) | payer OTHER, SELFPAY | PROVIDERS: PCP Nurse Practitioner; Referring Provider Nurse Practitioner; Visit Provider Family Medicine | DX: L59.8 Other specified disorders of the skin and subcutaneous tissue related to radiation (principal); K04.7 Periapical abscess without sinus | CPT/HCPCS: 99183; G0277 ==

== ENCOUNTER → 2022-03-30 10:05 | Outpatient (CLI) | payer OTHER, SELFPAY | PROVIDERS: PCP Nurse Practitioner; Referring Provider Nurse Practitioner; Visit Provider Family Medicine | DX: L59.8 Other specified disorders of the skin and subcutaneous tissue related to radiation (principal); K04.7 Periapical abscess without sinus | CPT/HCPCS: 99183; G0277 ==

== ENCOUNTER → 2022-04-04 08:36 | Outpatient (CLI) | payer OTHER, SELFPAY | PROVIDERS: PCP Nurse Practitioner; Referring Provider Nurse Practitioner; Visit Provider Family Medicine | DX: L59.8 Other specified disorders of the skin and subcutaneous tissue related to radiation (principal); K04.7 Periapical abscess without sinus | CPT/HCPCS: 99183; G0277 ==

== ENCOUNTER → 2022-04-05 08:38 | Outpatient (CLI) | payer OTHER, SELFPAY | PROVIDERS: PCP Nurse Practitioner; Referring Provider Nurse Practitioner; Visit Provider Family Medicine | DX: L59.8 Other specified disorders of the skin and subcutaneous tissue related to radiation (principal); K04.7 Periapical abscess without sinus | CPT/HCPCS: 99183; G0277 ==

== ENCOUNTER → 2022-04-06 14:02 | Outpatient (CLI) | payer OTHER, SELFPAY | PROVIDERS: PCP Nurse Practitioner; Referring Provider Nurse Practitioner; Visit Provider Family Medicine | DX: L59.8 Other specified disorders of the skin and subcutaneous tissue related to radiation (principal); K04.7 Periapical abscess without sinus | CPT/HCPCS: 99183; G0277 ==

== ENCOUNTER → 2022-04-07 08:37 | Outpatient (CLI) | payer OTHER, SELFPAY | PROVIDERS: PCP Nurse Practitioner; Referring Provider Nurse Practitioner; Visit Provider Family Medicine | DX: L59.8 Other specified disorders of the skin and subcutaneous tissue related to radiation (principal); K04.7 Periapical abscess without sinus | CPT/HCPCS: 99183; G0277 ==

== ENCOUNTER → 2022-04-08 08:51 | Outpatient (CLI) | payer OTHER, SELFPAY | PROVIDERS: PCP Nurse Practitioner; Referring Provider Nurse Practitioner; Visit Provider Nurse Practitioner Family | DX: L59.8 Other specified disorders of the skin and subcutaneous tissue related to radiation (principal); K04.7 Periapical abscess without sinus | CPT/HCPCS: 99183; G0277 ==

== ENCOUNTER → 2022-04-12 07:26 | Outpatient (CLI) | payer OTHER, SELFPAY ==
[2022-04-12 08:33] LABS: HEMOLYSIS < 15 (0-50)
[2022-04-12 08:38] LABS: Alanine Aminotransferase 22 IU/L (<50); Albumin 4.5 g/dL (3.5-5.0); Alkaline Phosphatase 72 U/L (38-126); Aspartate Aminotransferase 29 IU/L (17-59); BUN Creatinine Ratio 17.2 (6-22); Bilirubin Total 0.4 mg/dL (0.2-1.3); Blood Urea Nitrogen 10 mg/dL (9-20); Calcium 8.8 mg/dL (8.4-10.2); Carbon Dioxide 32 mmol/L (22-32); Chloride 99 mmol/L (98-107); Cholesterol 168 mg/dL (140-199); Estimated Glomerular Filt Rate > 60 mL/min (>60); Globulin 2.3 g/dL (1.7-4.1); Glucose 101 mg/dL (80-110); HDL Cholesterol 86 mg/dL (40-60); LDL Cholesterol Calculated 63 mg/dL (<100); Potassium 4.3 mmol/L (3.4-5.1); Sodium 137 mmol/L (137-145); Total Protein 6.8 g/dL (6.3-8.2); Triglycerides 93 mg/dL (35-150)
[2022-04-12 17:27] LABS: Free T3, Triiodothyronine Free 3.05 pg/mL (2.77-5.27)
[2022-04-12 18:01] LABS: Prostate Specific Antigen Scrn 1.32 ng/mL (0.1-4.0)
== END ==
PROVIDERS: PCP Nurse Practitioner; Referring Provider Nurse Practitioner; Visit Provider Nurse Practitioner
DX: E03.9 Hypothyroidism, unspecified (principal); Z12.5 Encounter for screening for malignant neoplasm of prostate; E78.00 Pure hypercholesterolemia, unspecified; Z79.899 Other long term (current) drug therapy
CPT/HCPCS: 36415; 80053; 80061; 84439; 84443; 84481; G0103

== ENCOUNTER → 2022-08-05 08:28 | Outpatient (CLI) | payer OTHER, SELFPAY ==
--- NOTE | 2022-08-05 08:29 | DI.RAD.S_ITS ---
PROCEDURE: XR CHEST 2V INDICATIONS: cough TECHNIQUE: 2 views of the chest were acquired. COMPARISON: [facility], CR, XR CHEST 2V, 12/13/2018, 8:35. FINDINGS: Surgical changes and devices: Patient is status post heart valve replacement. Lungs and pleura: There is a calcified granuloma present involving the patient's right upper lobe. Otherwise lung parenchyma is clear. No pleural effusions or pneumothorax. Mediastinum: Mediastinal contours are normal. Heart size is normal. Bones and chest wall: No suspicious bony abnormalities. Soft tissues appear unremarkable. IMPRESSION: 1. No evidence for active disease in the chest. 2. Small calcified granuloma right upper lobe. 3. Status post heart valve replacement. Dictated by: Angel De La Paz M.D. on 08/05/2022 at 9:58 Approved by: Angel De La Paz M.D. on 08/05/2022 at 10:00
== END ==
PROVIDERS: PCP Nurse Practitioner; Referring Provider Nurse Practitioner; Visit Provider Nurse Practitioner
DX: J98.4 Other disorders of lung (principal); R05.9 Cough, unspecified; Z95.2 Presence of prosthetic heart valve
CPT/HCPCS: 71046

== ENCOUNTER → 2022-08-05 08:32 | Outpatient (CLI) | payer OTHER, SELFPAY ==
[2022-08-05 09:37] LABS: Influenza A - CEPHEID Flu A NEGATIVE (NEGATIVE); Influenza B - CEPHEID Flu B NEGATIVE (NEGATIVE); Respiratory Syncytial Virus Negative (Negative)
[2022-08-05 09:43] LABS: COVID-19 CEPHEID 4-PLEX PCR Negative (Negative)
== END ==
PROVIDERS: PCP Nurse Practitioner; Visit Provider Registered Nurse
DX: J06.9 Acute upper respiratory infection, unspecified (principal); Z20.822 Contact with and (suspected) exposure to COVID-19; J98.4 Other disorders of lung; R05.9 Cough, unspecified; Z95.2 Presence of prosthetic heart valve
CPT/HCPCS: 0241U; 71046

== ENCOUNTER → 2022-09-06 09:53 | Outpatient (CLI) | payer OTHER, SELFPAY ==
--- NOTE | 2022-09-06 09:56 | DI.CT.S_ITS ---
PROCEDURE: CT CHEST W CON INDICATIONS: chronic cough, exp wheezes, cannabis smoking history TECHNIQUE: After the administration of intravenous contrast, 5 mm thick sections acquired from the pulmonary apices to the posterior costophrenic angles. 1 mm axial lung, 5 mm thick coronal and sagittal reformats and 7 mm axial MIP were acquired. For radiation dose reduction, the following was used: automated exposure control, adjustment of mA and/or kV according to patient size. COMPARISON: [facility], CR, XR CHEST 2V, 08/05/2022, 8:27. FINDINGS: Image quality: Excellent. Lungs and pleura: Calcified posterior right upper lobe pulmonary granuloma similar to radiographic finding. Faint, scattered areas of patchy ground-glass opacities noted in the right middle lobe and right lower lobe. Some appear to be in a tree-in-bud distribution peripherally. There is also a ill-defined, irregular subpleural nodular density in the posterior left lower lobe measuring approximately 0.8 cm in size. This may represent atelectasis versus an irregular nodule. Other areas of atelectasis/scarring noted in the left hemithorax. Faint ground-glass opacities with slight peripheral tree-in-bud distribution are noted in the left lower lobe. No septal thickening or nodularity. No pleural effusions or pneumothorax. Central and peripheral airways are patent and normal in caliber. Mediastinum: Heart size is normal. Postoperative changes near the aortic valve. No pericardial effusion. Mild atherosclerotic calcifications of the coronary arteries. No mediastinal adenopathy by size criteria. Thoracic aorta and central pulmonary arteries are normal in size. Esophagus is normal in caliber. No hiatal hernia. Bones and chest wall: No suspicious bony lesions. No vertebral body compression fractures. No axillary or supraclavicular adenopathy by size criteria. Thyroid gland is unremarkable. Abdomen: Remainder of the visualized upper abdominal solid organs and bowel loops appear unremarkable. IMPRESSION: 1. Scattered areas of subtle/mild ground-glass opacities with a slight tree-in-bud distribution noted in the bilateral hemithoraces and most pronounced in the right lower lobe. There is also a more focal 8 mm irregular nodule in the posterior left lower lobe which may represent atelectasis/scarring versus a pulmonary nodule. Recommend follow-up chest CT in 3-6 months to document stability versus resolution of these findings.. 2. Atherosclerosis. Dictated by: Kar Chavez M.D. on 09/06/2022 at 12:07 Approved by: Kar Chavez M.D. on 09/06/2022 at 12:21
[2022-09-06 10:47] LABS: BUN Creatinine Ratio 24.6 (6-22); Blood Urea Nitrogen 16 mg/dL (9-20); Calcium 8.9 mg/dL (8.4-10.2); Carbon Dioxide 28 mmol/L (22-32); Chloride 100 mmol/L (98-107); Estimated Glomerular Filt Rate > 60 mL/min (>60); Glucose 108 mg/dL (80-110); HEMOLYSIS < 15 (0-50); Potassium 4.2 mmol/L (3.4-5.1); Sodium 134 mmol/L (137-145)
== END ==
PROVIDERS: PCP Nurse Practitioner; Referring Provider Nurse Practitioner; Visit Provider Nurse Practitioner
DX: J84.10 Pulmonary fibrosis, unspecified (principal); R05.9 Cough, unspecified; F12.90 Cannabis use, unspecified, uncomplicated; R06.2 Wheezing; I25.10 Atherosclerotic heart disease of native coronary artery without angina pectoris; M25.70 Osteophyte, unspecified joint; M51.36 Other intervertebral disc degeneration, lumbar region; Z85.818 Personal history of malignant neoplasm of other sites of lip, oral cavity, and pharynx
CPT/HCPCS: 36415; 71260; 80048; Q9967

== ENCOUNTER → 2022-12-13 07:59 | Outpatient (CLI) | payer OTHER, SELFPAY ==
--- NOTE | 2022-12-13 08:01 | DI.CT.S_ITS ---
PROCEDURE: CT CHEST W CON INDICATIONS: abnormal CT TECHNIQUE: After the administration of intravenous contrast, 5 mm thick sections acquired from the pulmonary apices to the posterior costophrenic angles. 1 mm axial lung, 5 mm thick coronal and sagittal reformats and 7 mm axial MIP were acquired. For radiation dose reduction, the following was used: automated exposure control, adjustment of mA and/or kV according to patient size. COMPARISON: [facility], CR, XR CHEST 2V, 08/05/2022, 8:27. [facility], CT, CT CHEST W CON, 09/06/2022, 10:51. FINDINGS: Image quality: Excellent. Lungs and pleura: On the prior CT mild ground-glass/nodular opacity can be seen within the superior aspect of the right lower lobe. This is no longer seen. No acute air space opacities. No pleural effusions or pneumothorax. Central and peripheral airways are patent and normal in caliber. At least 1 calcified granuloma can be seen, as on series 3, image 101. Scattered areas of subpleural scarring can be seen. Mediastinum: Heart size is normal. No pericardial effusion. Relatively prominent coronary artery calcification can be seen. A percutaneously placed aortic valve replacement can be seen. No mediastinal or hilar adenopathy by size criteria. Thoracic aorta and central pulmonary arteries are normal in size. Esophagus is normal in caliber. No hiatal hernia. Bones and chest wall: No suspicious bony lesions. No vertebral body compression fractures. Age-appropriate bony degenerative changes are seen. No axillary or supraclavicular adenopathy by size criteria. Thyroid gland is not well seen. Abdomen: Visualized upper abdominal solid organs appear normal. Upper abdominal bowel loops are normal in caliber. IMPRESSION: Resolution of the previously seen right lower lung opacity. Additional findings: Prosthetic aortic valve Relatively prominent coronary artery calcification Prior granulomatous exposure. Scattered areas of subpleural scarring Dictated by: Gonzales Pedraza M.D. on 12/13/2022 at 12:25 Approved by: Gonzales Pedraza M.D. on 12/13/2022 at 12:29
[2022-12-13 08:37] LABS: BUN Creatinine Ratio 21.1 (6-22); Blood Urea Nitrogen 15 mg/dL (9-20); Estimated Glomerular Filt Rate > 60 mL/min (>60)
== END ==
PROVIDERS: PCP Nurse Practitioner; Referring Provider Nurse Practitioner; Visit Provider Nurse Practitioner
DX: R93.89 Abnormal findings on diagnostic imaging of other specified body structures (principal); R05.9 Cough, unspecified; I25.10 Atherosclerotic heart disease of native coronary artery without angina pectoris; J98.4 Other disorders of lung; Z95.2 Presence of prosthetic heart valve
CPT/HCPCS: 36415; 71260; 82565; 84520; Q9967

== ENCOUNTER → 2022-12-15 09:55 | Outpatient (CLI) | payer OTHER, SELFPAY | PROVIDERS: PCP Nurse Practitioner; Referring Provider Nurse Practitioner; Visit Provider Nurse Practitioner | DX: R05.9 Cough, unspecified (principal) | CPT/HCPCS: 87070; 87077; 87205 ==

== ENCOUNTER → 2023-01-04 08:31 | Outpatient (CLI) | payer OTHER, SELFPAY | PROVIDERS: PCP Nurse Practitioner; Referring Provider Family Medicine; Visit Provider Family Medicine | DX: A49.2 Hemophilus influenzae infection, unspecified site (principal) | CPT/HCPCS: 87070; 87205 ==

== ENCOUNTER → 2023-01-11 10:12 | Outpatient (CLI) | payer OTHER, SELFPAY ==
--- NOTE | 2023-01-11 10:14 | DI.RAD.S_ITS ---
PROCEDURE: XR CHEST 2V INDICATIONS: chronic yellow sputum after trip to [place] in july, TECHNIQUE: 2 views of the chest were acquired. COMPARISON: [facility], [facility]MA[facility], XR CHEST 2V, 08/05/2022, 8:27. [facility], [facility]MA[facility], XR CHEST 2V, 12/13/2018, 8:35. FINDINGS: Surgical changes and devices: None. Lungs and pleura: Lungs are clear. No pleural effusions or pneumothorax. Mediastinum: Mediastinal contours are normal. Heart size is normal. Prosthetic valve. Bones and chest wall: No suspicious bony abnormalities. Soft tissues appear unremarkable. IMPRESSION: No acute cardiopulmonary abnormality is seen. Dictated by: Abe Gomez M.D. on 01/11/2023 at 12:08 Approved by: Abe Gomez M.D. on 01/11/2023 at 12:09
== END ==
PROVIDERS: PCP Nurse Practitioner; Referring Provider Physician Assistant; Visit Provider Physician Assistant
DX: J06.9 Acute upper respiratory infection, unspecified (principal); R09.3 Abnormal sputum
CPT/HCPCS: 36415; 71046; 86480

== ENCOUNTER → 2023-03-23 13:56 | Outpatient (CLI) | payer OTHER, SELFPAY ==
--- NOTE | 2023-03-23 13:58 | DI.CT.S_ITS ---
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 For radiation dose reduction, the following was used: automated exposure control, adjustment of mA and/or kV according to patient size. COMPARISON: None. FINDINGS: Image quality: Excellent. CSF spaces: Basal cisterns are patent. No extra-axial fluid collections. Ventricles are symmetric in size and shape. Brain: No midline shift. No intracranial bleeds or masses. No abnormal intracranial enhancement. There is cerebral volume loss for age. There is periventricular white matter chronic small vessel ischemic change. There is intracranial internal carotid artery atherosclerosis. Skull and face: Calvarium and visualized facial bones appear intact, without suspicious lesions. Sinuses: Visualized sinuses and mastoids are clear. IMPRESSION: No acute intracranial abnormalities. No abnormal enhancement. Dictated by: Mikael Mckeon M.D. on 03/23/2023 at 18:34 Approved by: Mikael Mckeon M.D. on 03/23/2023 at 18:36
--- NOTE | 2023-03-23 13:58 | DI.CT.S_ITS ---
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 Additional oblique axial 3.0 mm sections acquired through the pharynx. 3 mm thick coronal and sagittal reformats were generated. For radiation dose reduction, the following was used: automated exposure control. COMPARISON: [facility], CT, SOFT TISSUE NECK W CONTRAST, 07/22/2014, 10:18. FINDINGS: Image quality: Excellent. Lymph nodes: No enlarged lymph nodes seen throughout the neck. Vessels: Redemonstration of narrowing of the proximal left internal jugular vein. Visualized vasculature otherwise appears patent. Neck spaces: The oropharynx, nasopharynx, and pharynx demonstrate no mucosal lesions. The vocal cords, false vocal cords, pyriform sinuses, epiglottis, vallecula, and tongue base all appear normal. Extramucosal spaces appear unremarkable. Glands: The parotid and submandibular glands appear normal. Thyroid gland is mildly atrophic, otherwise normal. Miscellaneous: Visualized brain and orbits appear normal. Right upper lobe calcified granuloma. Superficial soft tissues appear normal. Bones: No suspicious bony lesions. Visualized sinuses and mastoids appear unremarkable. Degenerative changes of the spine. IMPRESSION: 1. No recurrent soft tissue mass or lymphadenopathy in the neck. 2. No acute abnormalities within the neck. Dictated by: Mikael Mckeon M.D. on 03/23/2023 at 18:37 Approved by: Mikael Mckeon M.D. on 03/23/2023 at 18:42
[2023-03-23 14:31] LABS: BUN Creatinine Ratio 26.1 (6-22); Blood Urea Nitrogen 18 mg/dL (9-20); Estimated Glomerular Filt Rate > 60 mL/min (>60)
[2023-03-26 23:15] LABS: QuantiFERON Mitogen Value >10.00 IU/mL (.); QuantiFERON TB Gold Plus Negative (Negative)
== END ==
PROVIDERS: Physician Assistant; PCP Nurse Practitioner; Referring Provider Nurse Practitioner; Visit Provider Nurse Practitioner
DX: C76.0 Malignant neoplasm of head, face and neck (principal); C09.9 Malignant neoplasm of tonsil, unspecified; I65.29 Occlusion and stenosis of unspecified carotid artery; Z11.1 Encounter for screening for respiratory tuberculosis; R05.8 Other specified cough; E78.00 Pure hypercholesterolemia, unspecified; E03.9 Hypothyroidism, unspecified; M51.36 Other intervertebral disc degeneration, lumbar region
CPT/HCPCS: 36415; 70470; 70491; 82565; 84520; 86480; Q9967

== ENCOUNTER → 2024-03-13 07:05 | Outpatient (CLI) | payer OTHER, SELFPAY ==
[2024-03-13 08:19] LABS: Alanine Aminotransferase 22 IU/L (<50); Albumin 4.4 g/dL (3.5-5.0); Albumin Globulin Ratio 1.9 (1.0-2.8); Alkaline Phosphatase 69 U/L (38-126); Aspartate Aminotransferase 39 IU/L (17-59); BUN Creatinine Ratio 19.7 (6-22); Bilirubin Total 0.7 mg/dL (0.2-1.3); Blood Urea Nitrogen 12 mg/dL (9-20); Calcium 8.6 mg/dL (8.4-10.2); Carbon Dioxide 30 mmol/L (22-32); Chloride 101 mmol/L (98-107); Cholesterol 167 mg/dL (140-199); Estimated Glomerular Filt Rate > 60 mL/min (>60); Globulin 2.3 g/dL (1.7-4.1); Glucose 112 mg/dL (80-110); HDL Cholesterol 76 mg/dL (40-60); HEMOLYSIS < 15 (0-50); LDL Cholesterol Calculated 77 mg/dL (<100); Potassium 4.3 mmol/L (3.4-5.1); Sodium 135 mmol/L (137-145); Total Protein 6.7 g/dL (6.3-8.2); Triglycerides 68 mg/dL (35-150)
[2024-03-13 08:52] LABS: TSH w/ Reflex to FT4 2.41 uIU/mL (0.47-4.68)
== END ==
PROVIDERS: PCP Family Medicine; Referring Provider Family Medicine; Visit Provider Family Medicine
DX: E03.9 Hypothyroidism, unspecified (principal); E78.00 Pure hypercholesterolemia, unspecified
CPT/HCPCS: 36415; 80053; 80061; 84443

== ENCOUNTER → 2024-10-23 12:34 | Outpatient (CLI) | payer OTHER, SELFPAY ==
[2024-10-23 12:58] LABS: Hematocrit 41.7 % (41-53); Hemoglobin 14.3 g/dL (13.5-17.5); Mean Corpuscular HGB Conc 34.2 % (30-36); Mean Corpuscular Hemoglobin 33.1 PG (26-34); Mean Corpuscular Volume 96.9 fL (80-100); Platelet Count 173 X10^3/uL (150-400); Red Cell Distribution Width 14.4 % (11.6-14.8)
[2024-10-23 13:26] LABS: Alanine Aminotransferase 20 IU/L (<50); Albumin 4.5 g/dL (3.5-5.0); Albumin Globulin Ratio 2.1 (1.0-2.8); Alkaline Phosphatase 65 U/L (38-126); Aspartate Aminotransferase 39 IU/L (17-59); BUN Creatinine Ratio 18.8 (6-22); Bilirubin Total 0.9 mg/dL (0.2-1.3); Blood Urea Nitrogen 13 mg/dL (9-20); Calcium 9.1 mg/dL (8.4-10.2); Carbon Dioxide 30 mmol/L (22-32); Chloride 100 mmol/L (98-107); Estimated Glomerular Filt Rate > 60 mL/min (>60); Globulin 2.1 g/dL (1.7-4.1); Glucose 116 mg/dL (70-99); HEMOLYSIS < 15 (0-50); Potassium 4.3 mmol/L (3.4-5.1); Sodium 136 mmol/L (137-145); Total Protein 6.6 g/dL (6.3-8.2)
[2024-10-23 13:29] LABS: Hemoglobin A1C% w Est Avg Glu 4.8 % (4.0-6.0)
[2024-10-23 13:58] LABS: TSH w/ Reflex to FT4 1.47 uIU/mL (0.47-4.68)
== END ==
LOC: LAB 12:35
PROVIDERS: PCP Family Medicine; Referring Provider Family Medicine; Visit Provider Family Medicine
DX: Z95.2 Presence of prosthetic heart valve (principal); E03.9 Hypothyroidism, unspecified; R53.82 Chronic fatigue, unspecified
CPT/HCPCS: 36415; 80053; 83036; 84443; 85027

== ENCOUNTER → 2025-04-09 07:01 | Outpatient (CLI) | payer OTHER, SELFPAY ==
[2025-04-09 08:05] LABS: Alanine Aminotransferase 28 IU/L (<50); Albumin 4.5 g/dL (3.5-5.0); Albumin Globulin Ratio 1.9 (1.0-2.8); Alkaline Phosphatase 70 U/L (38-126); Blood Urea Nitrogen 16 mg/dL (9-20); Calcium 9.1 mg/dL (8.4-10.2); Carbon Dioxide 30 mmol/L (22-32); Chloride 100 mmol/L (98-107); Cholesterol 173 mg/dL (140-199); Estimated Glomerular Filt Rate > 60 mL/min (>60); Globulin 2.4 g/dL (1.7-4.1); Glucose 112 mg/dL (70-99); HDL Cholesterol 94 mg/dL (40-60); HEMOLYSIS < 15 (0-50); Potassium 4.6 mmol/L (3.4-5.1); Sodium 135 mmol/L (137-145); Total Protein 6.9 g/dL (6.3-8.2); Triglycerides 75 mg/dL (35-150)
[2025-04-09 08:56] LABS: Hep C Virus Ab w/Reflex Quant NEGATIVE s/c (NEGATIVE)
== END ==
PROVIDERS: PCP Family Medicine; Referring Provider Family Medicine; Visit Provider Family Medicine
DX: Z00.00 Encounter for general adult medical examination without abnormal findings (principal); E03.9 Hypothyroidism, unspecified; E78.00 Pure hypercholesterolemia, unspecified; Z95.2 Presence of prosthetic heart valve
CPT/HCPCS: 36415; 80053; 80061; 86803

== ENCOUNTER → 2025-04-11 07:27 | Outpatient (CLI) | payer OTHER, SELFPAY | PROVIDERS: PCP Family Medicine; Referring Provider Family Medicine; Visit Provider Family Medicine | DX: Z12.11 Encounter for screening for malignant neoplasm of colon (principal) | CPT/HCPCS: 82274 ==